=== PATIENT | male | born 1985 | race Caucasian/White ===

== ENCOUNTER 2017-02-27 03:07 | Emergency (ER) | payer SELFPAY ==
--- NOTE | 2017-02-27 08:06 | ER ---
ADMIT: 02/27/2017 RM/LOC: ER [facility] MR#: [id number] [facility] [address] [place], [place] [address] ZA LANDA [address] [place] [address] Emergency Room Report SEX: M AGE: 32 : 1985 DATE: 02/27/2017 The patient is a 32-year-old, French-speaking [place] male, complaining of 4- hour history of qaioxolfix-gs-orxel sternal chest discomfort associated with nausea but no vomiting, fevers, chills, shortness of breath, or radiation of discomfort. The patient denies any alcohol consumption. Does take captopril for hypertension. Exam remarkable for nontoxic afebrile male, tender to palpation epigastrium. EKG sinus rhythm without ST-T or Q-wave change. Chest x-ray negative. Normal CBC, lactic acid, CRP. Negative alcohol. Normal chemistries including CK, MB, and troponin. D-dimer 0.19. BNP 8. Tox screen negative. UA negative. The patient was given IV fluids, Zofran, Toradol, Dilaudid, and Protonix with relief of discomfort. Advised to follow up Dr. Hutchison this week. Refilled Catopril 12.5 BID. Chin Chilel MD/ frankie JOB #: [id number] CC: Chin Chilel MD, Attending Physician Med Hutchison MD, Family Physician Med Hutchison MD
== END 2017-02-27 06:04 | disposition home or self-care (01) ==
LOC: ER 03:07
DX: R07.89 Other chest pain (principal); I10 Essential (primary) hypertension; F17.210 Nicotine dependence, cigarettes, uncomplicated; Z79.899 Other long term (current) drug therapy